=== PATIENT | female | born 1955 | race Hispanic/Latino ===

== ENCOUNTER 2024-05-31 23:17 | Emergency (ER) | payer OTHER, MEDICARE ==
[~2024-05-31] VITALS: Ht 152.4 cm; Wt 108.0 kg
[2024-05-31] MEDS ORDERED: HYDROmorphone HCL 1 MG/ML SYR IV PRN (23:30)
[2024-06-01] MEDS ORDERED: PERCOCET 5-3251 EACH PO (00:03)
[2024-06-01] MEDS ORDERED: OXYCODONE/ACETAMINOPHEN 1 TAB HOME.PACK PO ONE (00:15)
[2024-06-01 00:39] VITALS: BP 137/81
== END 2024-06-01 00:42 | disposition home or self-care (01) ==
LOC: ED 23:17
DX: S52.592A Other fractures of lower end of left radius, initial encounter for closed fracture (principal); S52.612A Displaced fracture of left ulna styloid process, initial encounter for closed fracture; E11.9 Type 2 diabetes mellitus without complications; I10 Essential (primary) hypertension; Z85.3 Personal history of malignant neoplasm of breast; W18.30XA Fall on same level, unspecified, initial encounter
CPT/HCPCS: 25605; 73090; 73110; 73560; 99283-25; J1171